=== PATIENT | male | born 1945 | race Caucasian/White ===

== ENCOUNTER 2021-04-24 19:46 | Inpatient (IN) ==
[2021-04-25] MEDS ORDERED: *HR* Promethazine 25 MG/ML VIAL IM PRN (04:15)
[2021-04-25] MEDS ORDERED: Naloxone 0.4 MG/ML INJ IVP PRN (04:15)
[2021-04-25] MEDS ORDERED: Melatonin 3 MG TABLET PO PRN (04:15)
[2021-04-25] MEDS ORDERED: D5% in Water 1,000 ML IVC PRN (04:21)
[2021-04-25] MEDS ORDERED: *HR* Dextrose 50 % in Water (Syg) 50 ML SYRINGE IVP PRN (04:21)
[2021-04-25] MEDS ORDERED: Dextrose Gel 15 GM/37.5 ML TUBE PO PRN ×2 (04:21)
[2021-04-25] MEDS ORDERED: methylPREDNISolone 125 MG/2 ML VIAL IVP ONE (04:45)
[2021-04-25] MEDS ORDERED: Saliva Stimulant 44.3ml BOTTLE PO PRN (04:46)
[2021-04-25] MEDS ORDERED: Saline Nasal Spray 44 ML BOTTLE NS PRN (04:46)
[2021-04-25 04:56] LABS: Hematocrit 31.3 % (37.5-50.1); Mean Corpuscular HGB Conc 31.9 g/dL (31.6-35.5); Mean Corpuscular Hemoglobin 27.3 pg (28.0-33.3); Mean Corpuscular Volume 85.5 fL (83.0-100.0); Mean Platelet Volume 10.2 fL (9.4-12.4); Platelet Count 394 K/mcL (140-400); Red Blood Count 3.66 M/mcL (4.19-5.50); Red Cell Distribution Width 14.2 % (11.5-14.5); White Blood Count 7.2 K/mcL (4.3-11.1)
[2021-04-25] MEDS ORDERED: Perflutren Lipid Microsphere 1.3 ML in 0.9 % Sodium Chloride 8.7 ML IVP PRN (05:01)
[2021-04-25 05:07] LABS: Activated Partial Thrombo Time 45.6 Seconds (26.0-36.0)
[2021-04-25 05:09] LABS: INR 5.1; Prothrombin Time 55.9 Seconds (9.4-12.1)
[2021-04-25 05:15] LABS: BUN/Creatinine Ratio 18 (6-26); Blood Urea Nitrogen 17 mg/dL (8-23); Calcium 8.5 mg/dL (8.6-10.3); Carbon Dioxide 23 mEq/L (23-29); Chloride 97 mEq/L (98-107); Glucose 456 mg/dL (70-105); Osmolality,Calculated 285 (280-300); Potassium 4.9 mEq/L (3.5-5.1); Sodium 127 mEq/L (136-145); eGFR For African Americans > 60 (> 60); eGFR For Non-African Americans > 60 (> 60)
[2021-04-25 05:16] LABS: Magnesium 1.6 mg/dL (1.6-2.6); Phosphorous 3.4 mg/dL (2.7-4.5)
[2021-04-25 05:28] LABS: Troponin I 0.08 ng/mL (< 0.04)
[2021-04-25 05:50] LABS: Estimated Average Glucose 301 mg/dl; Hemoglobin A1C 12.1 %
[2021-04-25 06:14] LABS: Thyroid Stimulating Hormone 0.451 mcIU/mL (0.340-5.600)
[2021-04-25 07:21] LABS: Chol/HDL Ratio 5.4 (0-4.9)
[2021-04-25] MEDS: Insulin LISPRO 300 UNITS/3 ML VIAL SUBQ SCH ×3 (08:06→18:53)
[2021-04-25] MEDS: carvediloL 25 MG TABLET PO SCH ×2 (08:07→16:42)
[2021-04-25] MEDS: Aspirin 81 MG TAB.CHEW PO SCH (08:07)
[2021-04-25] MEDS: Lactobacillus 1 EACH CAP.SPRINK PO SCH ×2 (08:07→20:09)
[2021-04-25] MEDS: predniSONE 20 MG TABLET PO SCH (08:08)
[2021-04-25] MEDS: Calcium Gluconate 1gm/50mL 1 GM/50 ML BAG IVPB SCH ×2 (08:10→09:15)
[2021-04-25] MEDS: Multivit/Ca/Min/Fe/FA 1 TAB TABLET PO SCH (08:14)
[2021-04-25] MEDS: Budesonide/Formoterol 160/4.5 1 PUFF INH IH SCH ×2 (08:59→20:46)
[2021-04-25] MEDS: Ipratropium/Albuterol Neb 3 ML IH SCH ×5 (08:59→23:37)
[2021-04-25] MEDS ORDERED: Chlorhexidine Rinse 15 ML MOUTHWASH MM SCH (09:00)
[2021-04-25 09:51] LABS: ABG Base Excess -2 mEq/L (-2 to 3); ABG HCO3 20 mEq/L (21-27); ABG Oxygen Saturation 95 % (95-98); ABG PCO2 28 mmHg (35-45); ABG PH 7.47 pH Units (7.32-7.45); ABG PO2 67 mmHg (85-104); ABG TCO2 21 mEq/L (20-26)
[2021-04-25] MEDS: Albumin 25% 25gram/100mL 25 GM/100 ML IV.SOLN IVPB SCH ×2 (10:16→20:14)
[2021-04-25] MEDS ORDERED: Insulin LISPRO 300 UNITS/3 ML VIAL SUBQ ONE ×2 (10:39→20:32)
[2021-04-25] MEDS: Furosemide 20 MG/2 ML VIAL IVP SCH ×2 (12:43→16:42)
[2021-04-25] MEDS: Artificial Tears SOLN 15 ML BOTTLE BOTH EYES SCH ×4 (12:43→20:40)
[2021-04-25] MEDS ORDERED: Insulin DETEMIR 100 UNIT/ML X5UNITS SUBQ SCH (21:00)
[2021-04-25 21:45] LABS: Adenovirus Not Detected (Not Detect); Bordetella Pertussis Not Detected (Not Detect); Chlamydophila pneumoniae Not Detected (Not Detect); Coronavirus 229E Not Detected (Not Detect); Coronavirus HKU1 Not Detected (Not Detect); Coronavirus NL63 Not Detected (Not Detect); Coronavirus OC43 Not Detected (Not Detect); Human Metapneumovirus Not Detected (Not Detect); Human Rhinovirus/Enterovirus Not Detected (Not Detect); Influenza A Subtype 2009 H1 Not Detected (Not Detect); Influenza B Not Detected (Not Detect); Mycoplasma pneumoniae Not Detected (Not Detect); Parainfluenza Virus 1 Not Detected (Not Detect); Parainfluenza Virus 2 Not Detected (Not Detect); Parainfluenza Virus 3 Not Detected (Not Detect); Parainfluenza Virus 4 Not Detected (Not Detect); Respiratory Syncytial Virus Not Detected (Not Detect); SARS-CoV-2 Not Detected (Not Detect)
[2021-04-26] MEDS ORDERED: Insulin Human Regular 5 UNIT in 0.9 % Sodium Chloride 10 ML IV ONE (01:00)
[2021-04-26 02:13] LABS: Iron 35 mcg/dL (65-175)
[2021-04-26 02:26] LABS: Ferritin 466 ng/mL (20-250)
[2021-04-26 02:31] LABS: Folate 16.4 ng/mL (3.0-16.0)
[2021-04-26 02:41] LABS: Vitamin B12 > 1500 pg/mL (250-1100)
[2021-04-26 03:49] LABS: % Iron Saturation 23 % (20-55); Transferrin 111 mg/dL (203-362)
[2021-04-26] MEDS: Ipratropium/Albuterol Neb 3 ML IH SCH ×6 (04:41→23:17)
[2021-04-26] MEDS: Budesonide/Formoterol 160/4.5 1 PUFF INH IH SCH ×2 (07:37→23:15)
[2021-04-26 08:17] LABS: Basophils % 0.2 %; Eosinophils % 0.2 %; Hematocrit 30.9 % (37.5-50.1); Hemoglobin 9.9 g/dL (12.9-16.9); Immature Granulocytes % 1.6 % (0-4); Lymphocytes # 0.7 K/mcL (0.6-4.6); Lymphocytes % 5.6 %; Mean Corpuscular Hemoglobin 27.4 pg (28.0-33.3); Mean Corpuscular Volume 85.6 fL (83.0-100.0); Mean Platelet Volume 10.2 fL (9.4-12.4); Monocytes # 0.6 K/mcL (0.0-1.3); Neutrophils # 10.9 K/mcL (1.6-8.9); Platelet Count 469 K/mcL (140-400); Red Blood Count 3.61 M/mcL (4.19-5.50); Red Cell Distribution Width 14.2 % (11.5-14.5); Segmented Neutrophils % 87.4 %
[2021-04-26] MEDS: Albumin 25% 25gram/100mL 25 GM/100 ML IV.SOLN IVPB SCH ×2 (08:18→22:16)
[2021-04-26] MEDS: Artificial Tears SOLN 15 ML BOTTLE BOTH EYES SCH ×4 (08:19→23:46)
[2021-04-26] MEDS: Insulin LISPRO 300 UNITS/3 ML VIAL SUBQ SCH ×5 (08:19→17:23)
[2021-04-26 08:20] LABS: White Blood Count 12.5 K/mcL (4.3-11.1)
[2021-04-26] MEDS: predniSONE 20 MG TABLET PO SCH (08:20)
[2021-04-26] MEDS: Multivit/Ca/Min/Fe/FA 1 TAB TABLET PO SCH (08:20)
[2021-04-26] MEDS: carvediloL 25 MG TABLET PO SCH ×2 (08:20→17:23)
[2021-04-26] MEDS: Aspirin 81 MG TAB.CHEW PO SCH (08:20)
[2021-04-26] MEDS: Lactobacillus 1 EACH CAP.SPRINK PO SCH ×2 (08:20→22:15)
[2021-04-26 08:30] LABS: BUN/Creatinine Ratio 33 (6-26); Blood Urea Nitrogen 33 mg/dL (8-23); Calcium 9.6 mg/dL (8.6-10.3); Carbon Dioxide 24 mEq/L (23-29); Chloride 98 mEq/L (98-107); Glucose 428 mg/dL (70-105); Osmolality,Calculated 296 (280-300); Potassium 4.6 mEq/L (3.5-5.1); Sodium 130 mEq/L (136-145); eGFR For African Americans > 60 (> 60); eGFR For Non-African Americans > 60 (> 60)
[2021-04-26 08:32] LABS: INR 4.5; Prothrombin Time 49.2 Seconds (9.4-12.1)
[2021-04-26] MEDS: Furosemide 20 MG/2 ML VIAL IVP SCH ×2 (10:36→17:22)
[2021-04-26] MEDS ORDERED: Benzonatate 100 MG CAPSULE PO PRN (11:09)
[2021-04-26] MEDS ORDERED: Menthol 1 EACH LOZENGE PO PRN (13:12)
[2021-04-26] MEDS: amLODIPine 5 MG TABLET PO SCH (22:15)
[2021-04-26] MEDS: Insulin DETEMIR 100 UNIT/ML X5UNITS SUBQ SCH (22:16)
[2021-04-27] MEDS: Ipratropium/Albuterol Neb 3 ML IH SCH ×6 (03:54→23:11)
[2021-04-27 05:48] LABS: Basophils # 0.1 K/mcL (0.0-0.2); Basophils % 0.9 %; Eosinophils # 0.1 K/mcL (0.0-0.6); Eosinophils % 0.9 %; Hematocrit 32.2 % (37.5-50.1); Hemoglobin 10.3 g/dL (12.9-16.9); Immature Granulocytes % 6.4 % (0-4); Lymphocytes # 1.2 K/mcL (0.6-4.6); Lymphocytes % 9.6 %; Mean Corpuscular Hemoglobin 27.5 pg (28.0-33.3); Mean Corpuscular Volume 85.9 fL (83.0-100.0); Mean Platelet Volume 10.4 fL (9.4-12.4); Monocytes # 0.7 K/mcL (0.0-1.3); Monocytes % 5.4 %; Platelet Count 510 K/mcL (140-400); Red Blood Count 3.75 M/mcL (4.19-5.50); Red Cell Distribution Width 14.1 % (11.5-14.5); Segmented Neutrophils % 76.8 %; White Blood Count 12.7 K/mcL (4.3-11.1)
[2021-04-27 05:58] LABS: Neutrophils # 9.8 K/mcL (1.6-8.9)
[2021-04-27 06:01] LABS: BUN/Creatinine Ratio 38 (6-26); Blood Urea Nitrogen 36 mg/dL (8-23); Calcium 10.1 mg/dL (8.6-10.3); Carbon Dioxide 24 mEq/L (23-29); Chloride 99 mEq/L (98-107); Glucose 290 mg/dL (70-105); Osmolality,Calculated 295 (280-300); Potassium 4.5 mEq/L (3.5-5.1); Sodium 133 mEq/L (136-145); eGFR For African Americans > 60 (> 60); eGFR For Non-African Americans > 60 (> 60)
[2021-04-27 06:21] LABS: Large Platelets Present (Not Present); Platelet Estimate Increased (Normal)
[2021-04-27] MEDS: Budesonide/Formoterol 160/4.5 1 PUFF INH IH SCH ×2 (07:33→20:23)
[2021-04-27] MEDS: Insulin LISPRO 300 UNITS/3 ML VIAL SUBQ SCH ×6 (08:11→17:05)
[2021-04-27] MEDS: Albumin 25% 25gram/100mL 25 GM/100 ML IV.SOLN IVPB SCH ×2 (08:17→21:29)
[2021-04-27] MEDS: carvediloL 25 MG TABLET PO SCH ×2 (08:17→16:53)
[2021-04-27] MEDS: Lactobacillus 1 EACH CAP.SPRINK PO SCH ×2 (08:20→21:29)
[2021-04-27] MEDS: Aspirin 81 MG TAB.CHEW PO SCH (08:20)
[2021-04-27] MEDS: Multivit/Ca/Min/Fe/FA 1 TAB TABLET PO SCH (08:21)
[2021-04-27] MEDS: predniSONE 20 MG TABLET PO SCH (08:21)
[2021-04-27] MEDS: Artificial Tears SOLN 15 ML BOTTLE BOTH EYES SCH ×4 (08:22→21:30)
[2021-04-27] MEDS: Furosemide 20 MG/2 ML VIAL IVP SCH ×2 (10:40→16:53)
[2021-04-27 15:12] LABS: INR 3.9; Prothrombin Time 42.6 Seconds (9.4-12.1)
[2021-04-27] MEDS: amLODIPine 5 MG TABLET PO SCH (21:29)
[2021-04-27] MEDS: Insulin DETEMIR 100 UNIT/ML X5UNITS SUBQ SCH (21:33)
[2021-04-28] MEDS: Ipratropium/Albuterol Neb 3 ML IH SCH ×6 (02:51→23:52)
[2021-04-28 06:52] LABS: Hematocrit 33.2 % (37.5-50.1); Hemoglobin 10.4 g/dL (12.9-16.9); Mean Corpuscular HGB Conc 31.3 g/dL (31.6-35.5); Mean Corpuscular Hemoglobin 27.2 pg (28.0-33.3); Mean Corpuscular Volume 86.9 fL (83.0-100.0); Mean Platelet Volume 10.8 fL (9.4-12.4); Nucleated Red Blood Cells 0.3 /100 WBC (0); Platelet Count 472 K/mcL (140-400); Red Blood Count 3.82 M/mcL (4.19-5.50); Red Cell Distribution Width 14.3 % (11.5-14.5); White Blood Count 11.5 K/mcL (4.3-11.1)
[2021-04-28 06:55] LABS: INR 3.1; Prothrombin Time 34.8 Seconds (9.4-12.1)
[2021-04-28 07:06] LABS: BUN/Creatinine Ratio 40 (6-26); Blood Urea Nitrogen 33 mg/dL (8-23); Calcium 10.4 mg/dL (8.6-10.3); Carbon Dioxide 28 mEq/L (23-29); Chloride 100 mEq/L (98-107); Glucose 193 mg/dL (70-105); Osmolality,Calculated 295 (280-300); Potassium 4.1 mEq/L (3.5-5.1); Sodium 136 mEq/L (136-145); eGFR For African Americans > 60 (> 60); eGFR For Non-African Americans > 60 (> 60)
[2021-04-28 07:21] LABS: Eosinophils # 1.2 K/mcL (0.0-0.6); Lymphocytes # 2.3 K/mcL (0.6-4.6); Monocytes # 1.4 K/mcL (0.0-1.3); Neutrophils # 6.4 K/mcL (1.6-8.9)
[2021-04-28] MEDS: Budesonide/Formoterol 160/4.5 1 PUFF INH IH SCH ×2 (07:43→20:16)
[2021-04-28] MEDS: carvediloL 25 MG TABLET PO SCH ×2 (07:56→17:06)
[2021-04-28] MEDS: Artificial Tears SOLN 15 ML BOTTLE BOTH EYES SCH ×4 (07:56→20:54)
[2021-04-28] MEDS: predniSONE 20 MG TABLET PO SCH (07:57)
[2021-04-28] MEDS: Albumin 25% 25gram/100mL 25 GM/100 ML IV.SOLN IVPB SCH ×2 (07:57→20:56)
[2021-04-28] MEDS: Lactobacillus 1 EACH CAP.SPRINK PO SCH ×2 (07:57→20:53)
[2021-04-28] MEDS: Aspirin 81 MG TAB.CHEW PO SCH (07:57)
[2021-04-28] MEDS: Multivit/Ca/Min/Fe/FA 1 TAB TABLET PO SCH (07:57)
[2021-04-28] MEDS: Insulin LISPRO 300 UNITS/3 ML VIAL SUBQ SCH ×6 (08:13→17:05)
[2021-04-28] MEDS: Furosemide 20 MG/2 ML VIAL IVP SCH ×2 (10:25→17:06)
[2021-04-28] MEDS: amLODIPine 5 MG TABLET PO SCH (20:51)
[2021-04-28] MEDS: Insulin DETEMIR 100 UNIT/ML X5UNITS SUBQ SCH (20:55)
[2021-04-29] MEDS: Ipratropium/Albuterol Neb 3 ML IH SCH ×6 (03:34→23:25)
[2021-04-29 05:27] LABS: Basophils % 0.1 %; Eosinophils # 0.4 K/mcL (0.0-0.6); Eosinophils % 3.2 %; Hemoglobin 10.2 g/dL (12.9-16.9); Immature Granulocytes % 16.9 % (0-4); Lymphocytes # 1.5 K/mcL (0.6-4.6); Lymphocytes % 12.2 %; Mean Corpuscular HGB Conc 31.9 g/dL (31.6-35.5); Mean Corpuscular Hemoglobin 27.6 pg (28.0-33.3); Mean Corpuscular Volume 86.7 fL (83.0-100.0); Mean Platelet Volume 10.4 fL (9.4-12.4); Monocytes # 0.8 K/mcL (0.0-1.3); Neutrophils # 7.8 K/mcL (1.6-8.9); Nucleated Red Blood Cells 0.3 /100 WBC (0); Platelet Count 488 K/mcL (140-400); Red Blood Count 3.69 M/mcL (4.19-5.50); Red Cell Distribution Width 14.6 % (11.5-14.5); Segmented Neutrophils % 61.6 %; White Blood Count 12.6 K/mcL (4.3-11.1)
[2021-04-29 05:41] LABS: BUN/Creatinine Ratio 46 (6-26); Blood Urea Nitrogen 39 mg/dL (8-23); Calcium 10.2 mg/dL (8.6-10.3); Carbon Dioxide 27 mEq/L (23-29); Chloride 100 mEq/L (98-107); Glucose 219 mg/dL (70-105); Osmolality,Calculated 296 (280-300); Potassium 4.1 mEq/L (3.5-5.1); Sodium 135 mEq/L (136-145); eGFR For African Americans > 60 (> 60); eGFR For Non-African Americans > 60 (> 60)
[2021-04-29] MEDS: Budesonide/Formoterol 160/4.5 1 PUFF INH IH SCH ×2 (08:02→20:50)
[2021-04-29] MEDS: Aspirin 81 MG TAB.CHEW PO SCH (08:33)
[2021-04-29] MEDS: dexAMETHasone 4 MG TABLET PO SCH (08:33)
[2021-04-29] MEDS: Multivit/Ca/Min/Fe/FA 1 TAB TABLET PO SCH (08:33)
[2021-04-29] MEDS: Furosemide 20 MG/2 ML VIAL IVP SCH (08:34)
[2021-04-29] MEDS: Lactobacillus 1 EACH CAP.SPRINK PO SCH ×2 (08:34→21:08)
[2021-04-29] MEDS: Albumin 25% 25gram/100mL 25 GM/100 ML IV.SOLN IVPB SCH (08:34)
[2021-04-29] MEDS: carvediloL 25 MG TABLET PO SCH ×2 (08:34→16:14)
[2021-04-29] MEDS: Insulin LISPRO 300 UNITS/3 ML VIAL SUBQ SCH ×6 (08:48→16:15)
[2021-04-29] MEDS: Artificial Tears SOLN 15 ML BOTTLE BOTH EYES SCH ×4 (08:50→21:07)
[2021-04-29 13:34] LABS: INR 2.2; Prothrombin Time 24.4 Seconds (9.4-12.1)
[2021-04-29] MEDS ORDERED: *HR* Warfarin 1 MG TABLET PO ONE (18:00)
[2021-04-29] MEDS ORDERED: Warfarin perPT PO PRN (18:00)
[2021-04-29] MEDS: amLODIPine 5 MG TABLET PO SCH (21:08)
[2021-04-29] MEDS: Insulin DETEMIR 100 UNIT/ML X5UNITS SUBQ SCH (21:09)
[2021-04-30] MEDS ORDERED: Ipratropium/Albuterol Neb 3 ML IH PRN
[2021-04-30 05:10] LABS: Prothrombin Time 22.5 Seconds (9.4-12.1)
[2021-04-30 05:11] LABS: Hematocrit 31.7 % (37.5-50.1); Hemoglobin 10.2 g/dL (12.9-16.9); Mean Corpuscular HGB Conc 32.2 g/dL (31.6-35.5); Mean Corpuscular Hemoglobin 27.6 pg (28.0-33.3); Mean Corpuscular Volume 85.7 fL (83.0-100.0); Mean Platelet Volume 10.1 fL (9.4-12.4); Platelet Count 515 K/mcL (140-400); Red Cell Distribution Width 14.7 % (11.5-14.5); White Blood Count 14.6 K/mcL (4.3-11.1)
[2021-04-30 05:30] LABS: BUN/Creatinine Ratio 51 (6-26); Blood Urea Nitrogen 40 mg/dL (8-23); Calcium 10.4 mg/dL (8.6-10.3); Carbon Dioxide 28 mEq/L (23-29); Chloride 101 mEq/L (98-107); Glucose 275 mg/dL (70-105); Osmolality,Calculated 302 (280-300); Potassium 4.4 mEq/L (3.5-5.1); Sodium 136 mEq/L (136-145); eGFR For African Americans > 60 (> 60); eGFR For Non-African Americans > 60 (> 60)
[2021-04-30] MEDS: Budesonide/Formoterol 160/4.5 1 PUFF INH IH SCH ×2 (08:03→19:59)
[2021-04-30] MEDS: dexAMETHasone 4 MG TABLET PO SCH (10:21)
[2021-04-30] MEDS: Insulin LISPRO 300 UNITS/3 ML VIAL SUBQ SCH ×6 (10:21→17:07)
[2021-04-30] MEDS: Lactobacillus 1 EACH CAP.SPRINK PO SCH ×2 (10:21→20:02)
[2021-04-30] MEDS: Multivit/Ca/Min/Fe/FA 1 TAB TABLET PO SCH (10:21)
[2021-04-30] MEDS: Furosemide 20 MG TABLET PO SCH (10:21)
[2021-04-30] MEDS: Aspirin 81 MG TAB.CHEW PO SCH (10:21)
[2021-04-30] MEDS: carvediloL 25 MG TABLET PO SCH ×2 (10:22→17:04)
[2021-04-30] MEDS: Artificial Tears SOLN 15 ML BOTTLE BOTH EYES SCH ×4 (10:22→20:03)
[2021-04-30] MEDS ORDERED: *HR* Warfarin 2.5 MG TABLET PO ONE (18:00)
[2021-04-30] MEDS: Insulin DETEMIR 100 UNIT/ML X5UNITS SUBQ SCH (20:02)
[2021-04-30] MEDS: amLODIPine 5 MG TABLET PO SCH (20:02)
[2021-05-01 01:54] LABS: Hematocrit 33.3 % (37.5-50.1); Hemoglobin 10.4 g/dL (12.9-16.9); Mean Corpuscular HGB Conc 31.2 g/dL (31.6-35.5); Mean Corpuscular Volume 86.5 fL (83.0-100.0); Mean Platelet Volume 10.1 fL (9.4-12.4); Platelet Count 507 K/mcL (140-400); Red Blood Count 3.85 M/mcL (4.19-5.50); Red Cell Distribution Width 14.8 % (11.5-14.5); White Blood Count 16.2 K/mcL (4.3-11.1)
[2021-05-01 02:02] LABS: INR 1.9; Prothrombin Time 21.1 Seconds (9.4-12.1)
[2021-05-01 02:15] LABS: BUN/Creatinine Ratio 48 (6-26); Blood Urea Nitrogen 46 mg/dL (8-23); Calcium 10.7 mg/dL (8.6-10.3); Carbon Dioxide 28 mEq/L (23-29); Chloride 100 mEq/L (98-107); Glucose 313 mg/dL (70-105); Osmolality,Calculated 304 (280-300); Potassium 4.7 mEq/L (3.5-5.1); Sodium 135 mEq/L (136-145); eGFR For African Americans > 60 (> 60); eGFR For Non-African Americans > 60 (> 60)
[2021-05-01] MEDS: Budesonide/Formoterol 160/4.5 1 PUFF INH IH SCH (07:38)
[2021-05-01] MEDS: Aspirin 81 MG TAB.CHEW PO SCH (09:53)
[2021-05-01] MEDS: dexAMETHasone 4 MG TABLET PO SCH (09:53)
[2021-05-01] MEDS: Multivit/Ca/Min/Fe/FA 1 TAB TABLET PO SCH (09:54)
[2021-05-01] MEDS: Furosemide 20 MG TABLET PO SCH (09:54)
[2021-05-01] MEDS: carvediloL 25 MG TABLET PO SCH (09:55)
[2021-05-01] MEDS: Lactobacillus 1 EACH CAP.SPRINK PO SCH (09:55)
[2021-05-01] MEDS: Artificial Tears SOLN 15 ML BOTTLE BOTH EYES SCH ×2 (09:55→11:52)
[2021-05-01] MEDS: Insulin LISPRO 300 UNITS/3 ML VIAL SUBQ SCH ×4 (09:56→11:51)
[2021-05-01 10:37] VITALS: BP 117/74; PULSE 61; TEMP 97.4; O2SAT 100
[2021-05-01] MEDS ORDERED: *HR* Warfarin 3 MG TABLET PO ONE (18:00)
== END 2021-05-01 17:15 | disposition home health service (06) | DRG 280 ==
LOC: 3ANU → SUATTDRO 04-25 03:34 → 3ANU 04-25 15:03 → SUATTDRO 04-25 15:46
PROVIDERS: ADMIT Family Medicine; ATTEND Internal Medicine